=== PATIENT | female | born 1970 | race Caucasian/White ===

== ENCOUNTER 2017-03-27 12:33 | Emergency (ER) | payer OTHER ==
[2017-03-27 13:30] VITALS: BP 121/73; PULSE 74; RESP 18; TEMP 98.4
--- NOTE | 2017-03-27 14:26 | ED ---
General Adult HPI - General Chief complaint: Back Pain/Injury Stated complaint: Fall-Hip/Back Pain Time Seen by Provider: 03/27/17 14:05 Source: patient, RN notes reviewed Mode of arrival: ambulatory Limitations: no limitations - History of Present Illness Initial comments: 46-year-old female presents to the emergency department with a chief complaint of slip and fall. Patient slipped and fell onto the steps this morning. She states when entering right hip and buttock area. She continues to have pain to these areas. Unable to ambulate. She states she did not hit her head. There is no lightheadedness or dizziness before the fall. She denies any other complaints at this time. She states that she was concerned due to her pain and she took Tylenol threes at home with no significant improvement so she came in to be evaluated. Patient denies any history of back pain in the past. Patient denies any recent fever, chills, shortness of breath, chest pain, abdominal pain , nausea vomiting, numbness or tingling, dysuria or hematuria, constipation or diarrhea, headaches or visual changes, or any other current symptoms. - Related Data Previous Rx's Medication Instructions Recorded Hydrocodone/Acetaminophen [[place] 1 each PO Q6HR PRN #20 tab 03/27/17 5-325] Allergies Allergy/AdvReac Type Severity Reaction Status Date / Time Sulfa (Sulfonamide Allergy Anaphylaxis Verified 03/27/17 13:30 Antibiotics) Review of Systems ROS Statement: Those systems with pertinent positive or pertinent negative responses have been documented in the HPI. ROS Other: All systems not noted in ROS Statement are negative. Past Medical History Past Medical History: Cancer, Thyroid Disorder History of Any Multi-Drug Resistant Organisms: None Reported Past Surgical History: Section Additional Past Surgical History / Comment(s): thyroidectomy Past Psychological History: No Psychological Hx Reported Smoking Status: Current every day smoker Past Alcohol Use History: None Reported Past Drug Use History: None Reported General Exam Limitations: no limitations General appearance: alert, in no apparent distress Eye exam: Present: normal appearance, PERRL, EOMI. Absent: scleral icterus, conjunctival injection, periorbital swelling ENT exam: Present: normal exam, mucous membranes moist Neck exam: Present: normal inspection. Absent: tenderness, meningismus, lymphadenopathy Respiratory exam: Present: normal lung sounds bilaterally. Absent: respiratory distress, wheezes, rales, rhonchi, stridor Cardiovascular Exam: Present: regular rate, normal rhythm, normal heart sounds. Absent: systolic murmur, diastolic murmur, rubs, gallop, clicks Extremities exam: Present: normal inspection, full ROM, tenderness (Over the right lateral hip). Absent: pedal edema Back exam: Present: normal inspection, full ROM, tenderness (Right gluteal area) , vertebral tenderness (Lower lumbar), other (tenderness over the tailbone). Absent: rash noted Neurological exam: Present: alert, oriented X3 Psychiatric exam: Present: normal affect, normal mood Skin exam: Present: warm, dry, intact, normal color. Absent: rash Course Vital Signs 03/27/17 13:26 Temperature 98.4 F Pulse Rate 74 Respiratory 18 Rate Blood Pressure 121/73 O2 Sat by Pulse 99 Oximetry Medical Decision Making - Medical Decision Making 46-year-old female presents for slip and fall with right hip and back pain. At this time x-rays are reviewed. Does show some suspicion for Fracture Patient Is Tender Here at This Time We Discussed We'll Give Her Pain Medication We Discussed Follow-Up with Orthopedic We Discussed Skilled Nursing. We Discussed Return Parameters All Questions. Patient Stated That She Understood and She Is. This Plan. All Questions Have Been Answered. She Will Be Discharged. - Radiology Data Radiology results: report reviewed, image reviewed Disposition Clinical Impression: Fall, Contusion of right hip, Closed fracture of coccyx Disposition: HOME SELF-CARE Condition: Stable Instructions: Coccyx Injury (ED) Additional Instructions: Please use medication as discussed. Please follow up with family doctor if symptoms have not improved over the next two days. Please return to the emergency room if your symptoms increase or worsen or for any other concerns. Prescriptions: Hydrocodone/Acetaminophen [[place] 5-325] 1 each PO Q6HR PRN #20 tab PRN Reason: Pain Referrals: Kassi Gaxiola III, MD [Primary Care Provider] - 1-2 days Ethan Perez DO [Doctor of Osteopathic Medicine] - 1-2 days Time of Disposition: 14:44
--- NOTE | 2017-03-27 14:35 | XR ---
EXAMINATION TYPE: XR lumbar spine 2 or 3V DATE OF EXAM: 03/27/2017 CLINICAL HISTORY: pain TECHNIQUE: Three views of the lumbar spine are submitted. COMPARISON: None. FINDINGS: There are 5 lumbar type vertebral bodies identified. The lumbar spine shows satisfactory alignment w ithout evidence of acute fracture or dislocation. Vertebral body heights are within normal limits. Disc spaces are within normal limits. The posterior fusion defect S1. Overlying soft tissue appears unremarkable. Bone island overlying the left iliac wing. IMPRESSION: No acute fracture or dislocation is seen in the lumbar spine. ICD 10 NO FRACTURE, INITIAL EVALUATION
[2017-03-27] MEDS ORDERED: KETOROLAC 60 MG/2 ML VIAL IM STA (14:40)
--- NOTE | 2017-03-27 14:40 | XR ---
EXAMINATION TYPE: AP view pelvis. 2 views right hip. 3 views sacrum and coccyx DATE OF EXAM: 03/27/2017 COMPARISON: NONE HISTORY: 46-year-old female fell on steps today, pain FINDINGS: Pelvis and right hip: Tubal ligation clips are present. Multiple clips are in the left side of the pelvis. Pelvic phlebolit hs. The hips appear symmetric and intact. Suspect some degenerative labral ossification on both sides . Pubic symphysis is intact. No acute fracture, subluxation, or dislocation. Sacrum and coccyx: SI joints appear symmetric and intact. Small delineation to the arcuate lines of the sacrum. There is very minimal anterior angulation of the 2 distal coccygeal segments. No displaced fracture. IMPRESSION: 1. Pelvis and right hip: Suggestion of some degenerative labral ossifications on both sides. No acute osseous anomalies seen. 2. Sacrum and coccyx: Slight anterior angulation of the 2 distal coccygeal segments. If pain localiz es here, a minimally angulated tailbone fracture is not excluded.
== END 2017-03-27 15:10 | disposition home or self-care (01) ==
LOC: EC 12:33
DX: S32.2XXA Fracture of coccyx, initial encounter for closed fracture (principal); S70.01XA Contusion of right hip, initial encounter; F17.200 Nicotine dependence, unspecified, uncomplicated; Z85.9 Personal history of malignant neoplasm, unspecified; Z88.2 Allergy status to sulfonamides; W01.0XXA Fall on same level from slipping, tripping and stumbling without subsequent striking against object, initial encounter; Y92.009 Unspecified place in unspecified non-institutional (private) residence as the place of occurrence of the external cause
CPT/HCPCS: 72100; 72220; 73502; 99283; 96372; J1885